=== PATIENT | female | born 1990 | race Caucasian/White ===

== ENCOUNTER → 2020-07-10 10:18 | Outpatient (CLI) | payer OTHER, SELFPAY ==
--- NOTE | ~2020-07-10 | CT_ITS ---
EXAMINATION: CT abdomen pelvis wo con DATE: 07/10/2020 10:42 INDICATION: Right flank pain for months TECHNIQUE: Computed tomography (CT) of the abdomen and pelvis was performed without intravenous contr ast. Automated exposure control and iterative reconstruction technique were employed. Exam dose: 252 .68 mGy-cm total exam DLP. COMPARISON: None. FINDINGS: There are emphysematous changes. No infiltrate or consolidation or mass lesion is noted in the lower lung zones. Included Normal heart size. No pericardial or pleural effusion. Status post cholecystectomy. The liver, spleen, pancreas, and adrenal glands and kidneys are unremark able on this limited noncontrast examination. No bile duct or pancreatic duct dilatation. Normal caliber of the abdominal aorta. No intraperitoneal or retroperitoneal or pelvic mass lesion or adenopathy or ascites. The urinary bladder, uterus and adnexal areas are unremarkable. There is a prominent amount of fecal material in the rectum and colon. No bowel obstruction, bowel wa ll thickening, pneumatosis or intraperitoneal free air. Very small fat-containing umbilical hernia. No suspicious osteolytic or osteosclerotic lesion is detected. IMPRESSION: No urinary tract calculus or hydroureteronephrosis Status post cholecystectomy Reviewed, dictated and finalized at [facility] Reviewed, dictated and finalized at [facility].
== END ==
PROVIDERS: Visit Provider Physician Assistant
DX: R10.9 Unspecified abdominal pain (principal); Z90.49 Acquired absence of other specified parts of digestive tract
CPT/HCPCS: 74176

== ENCOUNTER → 2021-01-08 00:12 | Outpatient (CLI) | payer OTHER, SELFPAY ==
[2021-01-08 20:47] LABS: SARS-CoV-2 RNA PCR Negative
== END ==
PROVIDERS: PCP Family Medicine; Visit Provider Internal Medicine Gastroenterology
DX: Z01.812 Encounter for preprocedural laboratory examination (principal); Z20.822 Contact with and (suspected) exposure to COVID-19
CPT/HCPCS: C9803; U0003; U0005

== ENCOUNTER 2021-01-11 01:21 | Day surgery (SDC) | payer OTHER, SELFPAY ==
[2020-12-28 13:38] VITALS: BMI 27.8
[2021-01-11 10:18] VITALS: BP 93/75; PULSE 80; RESP 18; TEMP 36.7; O2SAT 100
[2021-01-11] MEDS: LACTATED RINGERS 1,000 ML 150 ML IV CONT (10:31)
--- NOTE | 2021-01-11 10:51 | WPDANESEPPF ---
Anes - Initial Pre Proc Eval Procedure: Operation Date: 01/11/21 11:00 Proposed Procedures p Colonoscopy - Eris Oshea MD Date/Time: 01/11/21 10:51 Surgeon: Eris Oshea MD Pre Op Diagnosis: constipation Patient Data Age: 30 Gender: F Height: 5 ft 1 in Weight: 63.3 kg Last Vital Signs Temp 98.0 F 01/11/21 10:18 Pulse 80 01/11/21 10:18 Resp 18 01/11/21 10:18 BP 93/75 L 01/11/21 10:18 Pulse Ox 100 01/11/21 10:18 Allergies Allergy/AdvReac Type Severity Reaction Status Date / Time No Known Allergies Allergy Verified 01/11/21 10:15 Home Medications Medication Instructions Recorded Confirmed Type albuterol sulfate 90 mcg/actuation 90 mcg INHALATION PRN PRN 07/31/20 12/28/20 History aerosol inhaler norethindrone acetate 1 mg-ethinyl 1 tablet PO DAILY tablet 07/31/20 01/11/21 History estradiol 20 mcg tablet Patient hx anesthesia problems: none Family hx anesthesia problems: none PMFSH Past Medical History Medical History (Updated 11/27/20 @ 15:28 by Eris Oshea MD) Alternating constipation and diarrhea Chronic constipation Tobacco abuse Family History Family History Mother Family history of gastrointestinal disorder Father Family history of cardiovascular disease Grandparent Diabetes mellitus Hypertension Other Cerebrovascular accident Family history of allergic disorder Social History Social History (Updated 11/27/20 @ 15:05 by Tona Crockett CMA) Smoking packs per day: 1 Smoking cigarettes per day: 20.0 Years smoked: 15 Smoking pack-years: 15.00 Smoking status: Current every day smoker Tobacco type: cigarettes Alcohol intake: current Drinks per week: 2 Substance use: never Substance use type: does not use Living arrangements: with roommate(s) Spiritual care concerns: No Anes - Eval Final PreProcedure Day of Procedure 01/11/21 10:51 Patient weight: normal Heart: regular rate and rhythm Lungs: clear to auscultation Airway: Mallampati scale class II Neurological: alert and oriented Last oral intake: >/= 8 hours ASA classification: II Emergent: no Anesthetic plan: proceed Anesthesia type and monitoring: general GIVS and standard monitoring Informed Consent: The patient's anesthetic plan and its attendant risks and benefits were discussed with the patient/family/POA. Questions were solicited and answers provided to the satisfaction of the patient/family/POA.
--- NOTE | 2021-01-11 11:01 | PM.HPGS ---
History of Present Illness History of Present Illness Consent: Risks, benefits, and alternatives have been discussed and questions answered. Patient agrees to proceed with procedure. Chief complaint: constipation Narrative: Coreen Mackay is a 30 year old female baseline constipation but after GB removed had diarrhea, I prescribed questran that she took only few times but became constipated again, last time she took over a week ago. She never had a colonoscopy, no blood in stools. CT scan a/p negative, here for colonoscopy Review of Systems Constitutional: Constitutional: Denies headache(s) and Denies weakness Eyes: Eyes: Denies blurry vision ENT: Reports Normal hearing present, Denies headache(s) and Denies neck pain Cardiovascular: Cardiovascular: Denies chest pain and Denies dyspnea Respiratory: Respiratory: Denies dyspnea Gastrointestinal: Gastrointestinal: Reports no additional gastrointestinal complaints Genitourinary: Genitourinary: Denies dysuria Musculoskeletal: Musculoskeletal: Denies neck pain Integumentary/Breasts: Skin/Breast: Denies dry skin Neurologic: Reports Normal hearing present, Denies headache(s) and Denies weakness Psychiatric: Psychiatric: Denies anxiety Endocrine: Endocrine: Denies change in body appearance Hematologic/Lymphatic: Hematologic/Lymphatic: Denies easy bleeding Allergic/Immunologic: Allergic/Immunologic: Denies urticaria PMFSH Past Medical History Medical History (Updated 11/27/20 @ 15:28 by Eris Oshea MD) Alternating constipation and diarrhea Chronic constipation Tobacco abuse Family History Family History Mother Family history of gastrointestinal disorder Father Family history of cardiovascular disease Grandparent Diabetes mellitus Hypertension Other Cerebrovascular accident Family history of allergic disorder Social History Social History (Updated 11/27/20 @ 15:05 by Tona Crockett CMA) Smoking packs per day: 1 Smoking cigarettes per day: 20.0 Years smoked: 15 Smoking pack-years: 15.00 Smoking status: Current every day smoker Tobacco type: cigarettes Alcohol intake: current Drinks per week: 2 Substance use: never Substance use type: does not use Living arrangements: with roommate(s) Spiritual care concerns: No Meds Home Medications and Allergies Home Medications Medication Instructions Recorded Confirmed Type albuterol sulfate 90 mcg/actuation 90 mcg INHALATION PRN PRN 07/31/20 12/28/20 History aerosol inhaler norethindrone acetate 1 mg-ethinyl 1 tablet PO DAILY tablet 07/31/20 01/11/21 History estradiol 20 mcg tablet Allergies Allergy/AdvReac Type Severity Reaction Status Date / Time No Known Allergies Allergy Verified 01/11/21 10:15 Vital Signs Vital Signs - 24 hr 01/11/21 10:18 Temperature 98.0 F Pulse Rate 80 Respiratory Rate 18 Blood Pressure 93/75 L Pulse Oximetry 100 Exam Const: General: comfortable and no acute distress HENMT: General nose exam: Normal nares present Eyes: General: appearance normal, both eyes and all related structures Neck: Neck: no JVD Resp: Auscultation: clear to auscultation bilaterally Cardio: Rate: regular rate Rhythm: regular rhythm GI: Inspection: non-distended GI Palp: Yes Soft to palpation Skin: General skin exam: normal color Neuro: General: gait normal Speech: normal speech Extrem: General: normal to inspection Psych: Mental Status: mental status grossly normal Assessment and Plan Assessment and plan (1) Chronic constipation: Code(s): K59.09 - Other constipation Status: Acute Assessment and Plan: colonoscopy
[2021-01-11 11:29] VITALS: BP 104/73; PULSE 76; RESP 35; O2SAT 100
[2021-01-11 11:39] VITALS: BP 116/77; PULSE 85; RESP 21; O2SAT 100
[2021-01-11 11:49] VITALS: BP 106/67; PULSE 80; RESP 22; O2SAT 100
== END 2021-01-11 12:02 | disposition home or self-care (01) ==
PROVIDERS: PCP Family Medicine; Visit Provider Internal Medicine Gastroenterology
PROC: 0DJD8ZZ Inspection of Lower Intestinal Tract, Via Natural or Artificial Opening Endoscopic (ICD-10-PCS; CPT 45378; principal; 2021-01-11 11:00)
DX: K59.00 Constipation, unspecified (principal); K63.5 Polyp of colon; K64.8 Other hemorrhoids; Z79.51 Long term (current) use of inhaled steroids; F17.210 Nicotine dependence, cigarettes, uncomplicated
CPT/HCPCS: 45385; 88305; C9803; J2704; J7120; U0003; U0005

== ENCOUNTER 2022-03-07 09:47 | Day surgery (SDC) | payer OTHER, SELFPAY ==
[2022-02-13 11:59] VITALS: BMI 24.5
--- NOTE | 2022-02-13 12:08 | SUR.PREOP ---
PRE-OPERATIVE [address] [address] 1. Report to the Surgery Center Waiting Room, the entrance is the first door on the right after passing through the automatic sliding doors, at time __1030___on date_03/07/2022__. OR Time:__1200__ . When you arrive, you and your visitor will be screened for Covid prior to entry. A mask is required within the surgery center. 2. Patients may have clear liquids (water, carbonated beverages, clear teas, apple juice) until 3 hours prior to surgery with a maximum of 20 ounces. ? No food from midnight until time of surgery. ? Infants may have breast milk until 4 hours before surgery, infant formula 6 hours prior to surgery. ? Children will be allowed to drink immediately following surgery. If applicable, please bring a bottle or sippy cup to assist with drinking. Juice, water, soda, and popsicles are readily available. For infants on formula, please bring formula the day of surgery. Pacifiers are allowed. 3. Take the following medications with a SIP of water the morning of surgery: 1. n/a 2. 3. Medications to discontinue per physician order: 1. n/a date to discontinue: 4. No make-up, nail chinese, hairspray, perfume, deodorant, or body powder the day of surgery. No jewelry (including any body piercings) or valuables the day of surgery. Please take a shower or bath the night before, or the morning of, surgery with an antibacterial soap. Wear comfortable, loose fitting clothing. Children are encouraged to wear pajamas. ? Jewelry must be removed prior to entering the operating room. Rings and piercings that are not removed will be cut off. The center will not accept responsibility for valuables. Please leave all valuables, including medications, at home the day of surgery. 5. When going home after surgery, a licensed log truck driver must drive you home. NO public transportation without another adult. We recommend someone to stay with you, no alcoholic beverages, driving or important decision making for 24 hours after surgery. For pediatric surgeries, we recommend two adults to accompany a child home. (Only one will be allowed into the building with the patient) 6. 1 visitor (over age of 18) will be allowed. The visitor will drop patient off and remain in car until patient is prepared for surgery. Visitor will be called to join patient. Exceptions: Adult of a pediatric patient, patients with intellectual and/or developmental disability or cognitive impairments can accompany patient through-out visit. Visitors will need to be screened prior to coming into the center. Screening will include Covid symptom question checking. Visitor must wear a mask. Visitor will remain in patient?s room for duration of stay. 7. If you or anyone in your household have experienced Covid symptoms in the past week, please notify your surgeon or surgery center at phone number below for possible testing. 8. Follow any additional instructions given by your physician. Telephone instructions given to:____Coreen -patient and asked if any additional questions and then verbalized understanding. Patient advised to call surgeon office or the surgery center at [phone] if any additional questions.
[2022-03-07 10:17] VITALS: BMI 23.0
[2022-03-07 10:18] VITALS: BP 106/77; PULSE 65; RESP 16; TEMP 36.9; O2SAT 100
[2022-03-07] MEDS: LACTATED RINGERS 1,000 ML 30 ML IV CONT (10:36)
--- NOTE | 2022-03-07 11:50 | WPDHPUPDATE1 ---
History and Physical Update Update Date/Time: 03/07/22 11:50 History and Physical has been reviewed, including an updated exam of the patient. There are NO changes in the patient's condition. Risks, benefits, and alternatives have been discussed and questions answered. Patient agrees to proceed with procedure.
--- NOTE | 2022-03-07 11:54 | WPDANESEPPF ---
Anes - Initial Pre Proc Eval Procedure: Operation Date: 03/07/22 12:00 Proposed Procedures p Esophagogastroduodenoscopy - Nikita Mac DO Date/Time: 03/07/22 11:54 Surgeon: Nikita Mac DO Pre Op Diagnosis: Gerd Patient Data Age: 31 Gender: F Height: 1.6 m Weight: 59 kg Last Vital Signs Temp 36.9 C 03/07/22 10:18 Pulse 65 03/07/22 10:18 Resp 16 03/07/22 10:18 BP 106/77 03/07/22 10:18 Pulse Ox 100 03/07/22 10:18 O2 Del Method Room Air 03/07/22 10:18 Allergies Allergy/AdvReac Type Severity Reaction Status Date / Time No Known Allergies Allergy Verified 03/07/22 09:58 Home Medications Medication Instructions Recorded Confirmed Type albuterol sulfate 90 mcg/actuation 90 mcg inhalation PRN PRN 07/31/20 03/07/22 History aerosol inhaler Shortness Of Breath norethindrone acetate 1 mg-ethinyl 1 tablet PO DAILY 07/31/20 03/07/22 History estradiol 20 mcg tablet famotidine-Ca carb-mag hydrox 10 1 tablet PO DAILY PRN Acid Reflux 02/13/22 03/07/22 History mg-800 mg-165 mg chewable tablet (Pepcid Complete) valacyclovir 500 mg tablet 500 mg PO DAILY 02/13/22 03/07/22 History (Valtrex) Patient hx anesthesia problems: none Family hx anesthesia problems: none Results Review: All pre-operative results and documents have been reviewed as part of the pre-operative evaluation. [facility] Past Medical History Medical History (Updated 03/06/22 @ 12:40 by Leon Vargas DO) Alternating constipation and diarrhea Asthma Chronic constipation GERD (gastroesophageal reflux disease) Tobacco abuse Surgical History Surgical History H/O dilation and curettage History of tonsillectomy Hx of cholecystectomy Family History Family History Mother Family history of gastrointestinal disorder Father Family history of cardiovascular disease Grandparent Diabetes mellitus Hypertension Other Cerebrovascular accident Family history of allergic disorder Social History Social History Smoking packs per day: 1 Smoking cigarettes per day: 20.0 Years smoked: 17 Smoking pack-years: 17.00 Smoking status: Current every day smoker Tobacco type: cigarettes Alcohol intake: current Drinks per week: 2 Substance use: never Substance use type: does not use Living arrangements: with family Spiritual care concerns: No Anes - Eval Final PreProcedure Day of Procedure 03/07/22 11:54 Patient weight: normal Heart: regular rate and rhythm Lungs: clear to auscultation Airway: Mallampati scale class II Neurological: alert and oriented Last oral intake: >/= 8 hours ASA classification: II Emergent: no Anesthetic plan: proceed Anesthesia type and monitoring: general GIVS and standard monitoring Results Review: All pre-operative results and documents have been reviewed as part of the pre-operative evaluation. Informed Consent: The patient's anesthetic plan and its attendant risks and benefits were discussed with the patient/family/POA. Questions were solicited and answers provided to the satisfaction of the patient/family/POA.
[2022-03-07 12:20] VITALS: BP 123/75; PULSE 67; RESP 14; O2SAT 100
[2022-03-07 12:30] VITALS: BP 107/75; PULSE 67; RESP 15; O2SAT 100
[2022-03-07 12:40] VITALS: BP 112/70; PULSE 65; RESP 15; O2SAT 100
== END 2022-03-07 09:48 | disposition home or self-care (01) ==
PROVIDERS: PCP Family Medicine; Visit Provider Surgery
PROC: 0DJ08ZZ Inspection of Upper Intestinal Tract, Via Natural or Artificial Opening Endoscopic (ICD-10-PCS; CPT 43235; principal; 2022-03-07 12:00)
DX: K29.00 Acute gastritis without bleeding (principal); K20.90 Esophagitis, unspecified without bleeding
CPT/HCPCS: 43239

== ENCOUNTER 2022-03-07 13:00 | Outpatient (NON) | payer OTHER, SELFPAY | END 2022-03-07 13:01 | disposition home or self-care (01) | LOC: ANHLAB 03-10 08:34 | PROVIDERS: PCP Family Medicine; Visit Provider Surgery | DX: R10.11 Right upper quadrant pain (principal); K29.50 Unspecified chronic gastritis without bleeding | CPT/HCPCS: 88305 ==

== ENCOUNTER 2025-04-14 01:00 | Day surgery (SDC) | payer OTHER, SELFPAY ==
[2025-04-10 13:49] VITALS: BMI 30.2
--- NOTE | 2025-04-10 13:49 | PC.NURSE ---
Report to the Outpatient Waiting Room, entrance under the green pavilion located off [facility], at time _1pm_ on date _[id number]_. Planned Procedure Time: _3pm_.? Time changes happen often and if your time is changed the preop area will call you the afternoon before. - You and your visitor will be asked to self-screen and do not enter if you have any COVID symptoms. Please call surgeon if you need to reschedule. - A mask is optional within the hospital at this time. Patients may have clear liquids (water, carbonated beverages, clear teas, apple juice) until 3 hours prior to surgery with a maximum of 20 ounces. - No food from midnight until time of surgery and no smoking, or chewing tobacco (or any form of nicotine). No chewing gum, candy or mints. Take only the following medications with a SIP of water on the morning of surgery: ___Citalopram and Buspirone and if needed Albuterol____ DO NOT STOP ANY OF YOUR OTHER PRESCRIPTION MEDICATIONS PRIOR TO SURGERY EXCEPT THE FOLLOWING Hold all vitamins and supplements for 3 days per anesthesiologist. Medications to discontinue per physician ___None____ Date to take last dose Please no make-up, nail slovak, hairspray, perfume, deodorant, or body powder the day of surgery.? No jewelry (including any body piercings) or valuables the day of surgery, leave them at home.? Please take a shower or bath the night before, or the morning of, surgery with an antibacterial soap.? Wear comfortable, loose fitting clothing.? - Jewelry must be removed prior to entering the operating room.? Rings and piercings that are not removed may be cut off. - The hospital will not accept responsibility for valuables.? - Please leave all valuables, including medications, at home the day of surgery. If you are going home after surgery, a licensed route delivery service driver must drive you home.? - NO public transportation without another adult if you receive anesthesia. - We recommend that an adult stay with you for 24 hours following discharge. - We also recommend that you do not drive, make important decision, drink alcoholic beverages, or take any drugs that were not prescribed by your health care provider for at least 24 hours after your discharge time. Follow any additional instructions given to you from your surgeon. Telephone instructions given to __Coreen___and asked if any additional questions and then verbalized understanding. Patient advised to call surgeon office or pre surgery nurse liaison [phone] if any additional questions.
--- NOTE | 2025-04-12 07:04 | PM.IMHP ---
H&P: HPI History of Present Illness Date/Time: 04/12/25 07:04 Chief Complaint: 1st trimester missed A/B Narrative: 34-year-old 1 para 0 with an 8 week missed A/B suction dilatation curettage. Serial ultrasound has shown no growth with no heart tones.. She could have a vanishing twin as well. Risks and benefits reviewed including but not exclusive of , aspiration, bleeding, transfusion, perforation injury bowel, bladder, ureters, or other internal organs with any over brought laparotomy. She had all questions answered and asked to proceed Review of Systems Constitutional: Constitutional: Denies headache(s) and Denies weakness Eyes: Eyes: Denies blurry vision ENT: Reports Normal hearing present, Denies headache(s) and Denies neck pain Cardiovascular: Cardiovascular: Denies chest pain and Denies dyspnea Respiratory: Respiratory: Denies dyspnea Gastrointestinal: Gastrointestinal: Reports no additional gastrointestinal complaints Genitourinary: Genitourinary: Denies dysuria Musculoskeletal: Musculoskeletal: Denies neck pain Integumentary/Breasts: Skin/Breast: Denies dry skin Neurologic: Reports Normal hearing present, Denies headache(s) and Denies weakness Psychiatric: Psychiatric: Denies anxiety Endocrine: Endocrine: Denies change in body appearance Hematologic/Lymphatic: Hematologic/Lymphatic: Denies easy bleeding Allergic/Immunologic: Allergic/Immunologic: Denies urticaria PMFSH Past Medical History Medical History Adenomatous colon polyp Asthma GERD (gastroesophageal reflux disease) Tobacco abuse Chronic constipation Alternating constipation and diarrhea Surgical History Surgical History H/O dilation and curettage Hx of cholecystectomy History of tonsillectomy Family History Family History Mother Family history of gastrointestinal disorder Father Family history of cardiovascular disease Grandparent Diabetes mellitus Hypertension Other Cerebrovascular accident Family history of allergic disorder Social History Social History Smoking packs per day: 1 Smoking cigarettes per day: 20.0 Years smoked: 20 Smoking pack-years: 20.00 Smoking status: Current every day smoker Tobacco type: cigarettes Alcohol intake: current Drinks per week: 2 Substance use: never Substance use type: marijuana Living arrangements: with family Spiritual care concerns: No Meds Home Medications and Allergies Home Medications ?Medication ?Instructions ?Recorded ?Confirmed ?Type albuterol sulfate 90 mcg/actuation 90 mcg inhalation PRN PRN 07/31/20 04/10/25 History aerosol inhaler Shortness Of Breath valacyclovir 500 mg tablet 500 mg PO DAILY 02/13/22 04/10/25 History (Valtrex) buspirone 7.5 mg tablet 7.5 mg PO DAILY 04/10/25 04/10/25 History citalopram 20 mg tablet 20 mg PO DAILY 04/10/25 04/10/25 History Allergies Allergy/AdvReac Type Severity Reaction Status Date / Time No Known Allergies Allergy Verified 04/10/25 13:38 Exam Const: General: cooperative, healthy appearing and comfortable Nutritional Appearance: average body habitus Orientation/consciousness: oriented to person, oriented to place and oriented to time HENMT: Head: normal to inspection Resp: Effort & Inspection: normal respiratory effort Cardio: Rate: regular rate Rhythm: regular rhythm Heart sounds: S1 normal heart sound present and S2 normal heart sound present GI: Inspection: normal to inspection : External Female Exam: normal external appearance Speculum Exam - Vagina: normal appearance of the vagina Bimanual exam- vagina & uterus: enlarged Bimanual Exam- Adnexa, other: normal adnexae Assessment and Plan Assessment and plan (1) Missed : Code(s): O02.1 - Missed Status: Acute Plan Suction dilatation curettage
--- NOTE | 2025-04-14 06:35 | WPDHPUPDATE1 ---
History and Physical Update Update Date/Time: 04/14/25 06:35 History and Physical has been reviewed, including an updated exam of the patient. There are NO changes in the patient's condition. Risks, benefits, and alternatives have been discussed and questions answered. Patient agrees to proceed with procedure.
[2025-04-14] MEDS: ACETAMINOPHEN 500 MG TABLET 1000 MG PO (14:00)
[2025-04-14 14:14] VITALS: BP 98/63; PULSE 87; RESP 16; TEMP 36.4; O2SAT 100
[2025-04-14 14:25] LABS: Hematocrit 40.3 % (37.0-47.0); Hemoglobin 13.5 g/dL (12.0-15.0)
--- NOTE | 2025-04-14 14:38 | P.PNAN_ITS ---
Anes - Initial Pre Proc Eval Procedure: Operation Date: 04/14/25 15:00 Proposed Procedures p Suction Dilation and Curettage - Ebenezer Neff MD Date/Time: 04/14/25 14:38 Surgeon: Ebenezer Neff MD Pre Op Diagnosis: Missed Ab Patient Data Age: 34 Gender: F Height: 1.57 m Weight: 74.1 kg Last Vital Signs Temp 36.4 C 04/14/25 14:14 Pulse 87 04/14/25 14:14 Resp 16 04/14/25 14:14 BP 98/63 L 04/14/25 14:14 Pulse Ox 100 04/14/25 14:14 O2 Del Method Room Air 04/14/25 14:14 Allergies Allergy/AdvReac Type Severity Reaction Status Date / Time No Known Allergies Allergy Verified 04/14/25 14:26 Home Medications ?Medication ?Instructions ?Recorded ?Confirmed ?Type albuterol sulfate 90 mcg/actuation 90 mcg inhalation PRN PRN 07/31/20 04/10/25 History aerosol inhaler Shortness Of Breath valacyclovir 500 mg tablet 500 mg PO DAILY 02/13/22 04/10/25 History (Valtrex) buspirone 7.5 mg tablet 7.5 mg PO DAILY 04/10/25 04/10/25 History citalopram 20 mg tablet 20 mg PO DAILY 04/10/25 04/10/25 History hydrocodone 5 mg-acetaminophen 325 1 tablet PO Q4H PRN pain #14 tabs 04/14/25 Rx mg tablet Laboratory Tests 04/14/25 14:05 Hgb 13.5 g/dL (12.0-15.0) Hct 40.3 % (37.0-47.0) Blood Type Pending Antibody Screen Pending Screen Pending Baby's Blood Type Pending Baby's NICOLE Pending Doses of RhIg Required Pending Patient hx anesthesia problems: none Family hx anesthesia problems: none Results Review: All pre-operative results and documents have been reviewed as part of the pre- operative evaluation. [facility] Past Medical History Medical History Adenomatous colon polyp Asthma GERD (gastroesophageal reflux disease) Tobacco abuse Chronic constipation Alternating constipation and diarrhea Surgical History Surgical History H/O dilation and curettage Hx of cholecystectomy History of tonsillectomy Family History Family History Mother Family history of gastrointestinal disorder Father Family history of cardiovascular disease Grandparent Diabetes mellitus Hypertension Other Cerebrovascular accident Family history of allergic disorder Social History Social History Smoking packs per day: 1 Smoking cigarettes per day: 20.0 Years smoked: 20 Smoking pack-years: 20.00 Smoking status: Current every day smoker Tobacco type: cigarettes Alcohol intake: current Drinks per week: 2 Substance use: never Substance use type: marijuana Living arrangements: with family Spiritual care concerns: No Anes - Eval Final PreProcedure Day of Procedure 04/14/25 14:38 Patient weight: overweight Heart: regular rate and rhythm Lungs: decreased breath sounds Airway: Mallampati scale class II Neurological: alert and oriented Last oral intake: >/= 8 hours ASA classification: II Emergent: no Anesthetic plan: proceed Anesthesia type and monitoring: general GIVS and standard monitoring Results Review: All pre-operative results and documents have been reviewed as part of the pre- operative evaluation. Informed Consent: The patient's anesthetic plan and its attendant risks and benefits were discussed with the patient/family/POA. Questions were solicited and answers provided to the satisfaction of the patient/family/POA.
[2025-04-14] MEDS: LIDOCAINE 1% LOCAL INJ 10 ML VIAL INFILTRATE (15:23)
--- NOTE | 2025-04-14 15:29 | W.PM.PROC2 ---
Procedure Note - Detailed Date of Procedure 04/14/25 Pre-op Diagnosis Missed Ab Post-op Diagnosis Same Procedure Performed Suction dilatation curettage Surgeon Ebenezer Neff MD Anesthesia MAC and Local Indications 34-year-old 1 para 0 the 1st trimester with a missed A/B Findings Uterus sounded to 9cm. Minimal tissue was present. Description of Procedure Patient was prepped and draped in the normal sterile fashion placed in the dorsal lithotomy position. Under excellent IV sedation weighted speculum placed posterior fornix vagina. Anterior lip of the cervix was then grasped with a single-tooth tenaculum. 2.5cc 1% xylocaine anesthesia placed at 2, 4, 8, 10:00 a.m. of the cervix. Uterus sounded to 9cm. Serial dilatation with fragmented dilators performed followed by passage of the 9. Suction curette removing a small to moderate amount of tissue. When a good grating sound was heard and no further tissue, the instruments withdrawn. The patient went recovery in satisfactory condition. All sponge, needle, instrument counts were correct. There were no immediate complications and RhoGAM was ordered due to her Rh negative status Estimated Blood Loss 25 Drains No Packing No Pathology Yes Complications No immediate complications Condition Stable Disposition PACU
[2025-04-14 15:32] VITALS: BP 122/72; PULSE 98; RESP 16; O2SAT 100
[2025-04-14] MEDS: LACTATED RINGERS 1,000 ML 30 ML IV CONT (15:32)
--- NOTE | 2025-04-14 15:33 | S_PTH ---
PATIENT: Coreen Aranda LOC: [facility] U#:[id number] AGE/SX: 34/F ROOM: RE04/14/[address]: Ebenezer Neff MD : 1990 BED: DIS: 04/14/2025 SPEC #: [id number] RECD: 04/17/25 08:26 STATUS: OMAR REKellen #: [id number] DAYNA: 04/14/25 15:[address]: Ebenezer Ordonez DEPT: [facility] Surgical RECD BY: Katarina Queen ENTERED: 04/17/25 08:26 SP TYPE: Surgical OTHR DR: Cm Fernandez, PALisaC Tissues: A - Uterine Contents Procedures: Hematoxylin and Eosin Stain Gross and Microscopic Level 4
[2025-04-14] MEDS: fentaNYL CITRATE INJ (*CRX) 100 MCG/2 ML VIAL 25 MCG IV PUSH ×2 (15:59→16:16)
[2025-04-14 16:00] VITALS: BP 134/84; PULSE 93; RESP 16; O2SAT 100
[2025-04-14 16:30] VITALS: BP 111/69; PULSE 83; RESP 16
[2025-04-14] MEDS: RHO(D) IMMUNE GLOBULIN 300 MCG/2 ML SYRINGE IM (16:41)
[2025-04-14] MEDS: oxyCODONE HCL (*CRX) 5 MG TAB IR PO (16:59)
[2025-04-14 17:00] VITALS: BP 100/70; PULSE 99; RESP 16
--- NOTE | 2025-04-14 17:13 | SUR.PHASEII ---
PATIENT TEARFUL UPON ARRIVAL TO OP AREA X 30-45 MINUTES; ASKED TO GO HOME AROUND 1650.
== END 2025-04-14 17:00 | disposition home or self-care (01) ==
PROVIDERS: PCP Physician Assistant; Visit Provider Obstetrics & Gynecology
PROC: (CPT 59820; principal; 2025-04-14 15:00)
DX: O02.1 Missed abortion (principal); J45.909 Unspecified asthma, uncomplicated; K21.9 Gastro-esophageal reflux disease without esophagitis; K59.09 Other constipation; F17.210 Nicotine dependence, cigarettes, uncomplicated; F12.90 Cannabis use, unspecified, uncomplicated; Z79.51 Long term (current) use of inhaled steroids; Z79.891 Long term (current) use of opiate analgesic; Z98.890 Other specified postprocedural states; Z90.49 Acquired absence of other specified parts of digestive tract; Z86.0100 Personal history of colon polyps, unspecified; Z82.49 Family history of ischemic heart disease and other diseases of the circulatory system
CPT/HCPCS: 59820; 36415; 85014; 85018; 85461; 86850; 86900; 86901; 88305; 90384; A9270; J2003; J2250; J2270; J2704; J2790; J3010; J7120

== ENCOUNTER 2025-06-16 01:30 | Day surgery (SDC) | payer OTHER, SELFPAY ==
[2025-06-09 08:37] VITALS: BMI 30.5
--- NOTE | 2025-06-09 08:45 | PC.NURSE ---
[facility] has started construction of its new state of the art ER which will open Spring 2026. With this, we anticipate parking may be a challenge for some our surgical patients and families. Parking spaces are limited but are available for all Surgical, obstetrics, and ER patients sharing this lot. If you arrive and find you are having a hard time finding a parking space, please note that we understand the challenges, please drive around the hospital and park near Hospital Entrance 1. When you enter this entrance, you can ask a volunteer to direct or take you back to the surgical waiting area to check in. We appreciate everyone?s understanding of these expected challenges while we build for your future. Report to the Outpatient Waiting Room, entrance under the green pavilion located off [address], at time _1000_ on date _[id number]_. Planned Procedure Time: _1200_.? Time changes happen often and if your time is changed the preop area will call you the afternoon before. - You and your visitor will be asked to self-screen and do not enter if you have any COVID symptoms. Please call surgeon if you need to reschedule. - A mask is optional within the hospital at this time. Patients may have clear liquids (water, carbonated beverages, clear teas, apple juice) until 3 hours prior to surgery with a maximum of 20 ounces. - No food from midnight until time of surgery and no smoking, or chewing tobacco (or any form of nicotine). No chewing gum, candy or mints. Take only the following medications with a SIP of water on the morning of surgery: ___Citalopram, Buspirone and if needed Alprazolam___ DO NOT STOP ANY OF YOUR OTHER PRESCRIPTION MEDICATIONS PRIOR TO SURGERY EXCEPT THE FOLLOWING Hold all vitamins and supplements for 3 days per anesthesiologist. Medications to discontinue per physician Date to take last dose Please no make-up, nail bengali, hairspray, perfume, deodorant, or body powder the day of surgery.? No jewelry (including any body piercings) or valuables the day of surgery, leave them at home.? Please take a shower or bath the night before, or the morning of, surgery with an antibacterial soap.? Wear comfortable, loose fitting clothing.? - Jewelry must be removed prior to entering the operating room.? Rings and piercings that are not removed may be cut off. - The hospital will not accept responsibility for valuables.? - Please leave all valuables, including medications, at home the day of surgery. If you are going home after surgery, a licensed bulk truck driver must drive you home.? - NO public transportation without another adult if you receive anesthesia. - We recommend that an adult stay with you for 24 hours following discharge. - We also recommend that you do not drive, make important decision, drink alcoholic beverages, or take any drugs that were not prescribed by your health care provider for at least 24 hours after your discharge time. Follow any additional instructions given to you from your surgeon. Telephone instructions given to __Coreen___and asked if any additional questions and then verbalized understanding. Patient advised to call surgeon office or pre surgery nurse liaison [phone] if any additional questions.
--- NOTE | 2025-06-12 14:12 | PM.IMHP ---
H&P: HPI History of Present Illness Date/Time: 06/12/25 14:12 Chief Complaint: Vaginal bleeding Narrative: Is a 34-year-old female admitted for repeat suction dilatation curettage. She underwent 1 about a month ago and pathology was benign. Her quantitative HCGs have been smoldering and ultrasound shows a 2cm area of retained tissue risks and benefits of this procedure reviewed including not exclusive of , aspiration minimal, bleeding, transfusion, perforation injury to bowel, bladder, ureters, or other internal organs with need for open laparotomy and unlikely hysterectomy. She had all questions answered and asked to proceed Review of Systems Constitutional: Constitutional: Denies headache(s) and Denies weakness Eyes: Eyes: Denies blurry vision ENT: Reports Normal hearing present, Denies headache(s) and Denies neck pain Cardiovascular: Cardiovascular: Denies chest pain and Denies dyspnea Respiratory: Respiratory: Denies dyspnea Gastrointestinal: Gastrointestinal: Reports no additional gastrointestinal complaints Genitourinary: Genitourinary: Denies dysuria Musculoskeletal: Musculoskeletal: Denies neck pain Integumentary/Breasts: Skin/Breast: Denies dry skin Neurologic: Reports Normal hearing present, Denies headache(s) and Denies weakness Psychiatric: Psychiatric: Denies anxiety Endocrine: Endocrine: Denies change in body appearance Hematologic/Lymphatic: Hematologic/Lymphatic: Denies easy bleeding Allergic/Immunologic: Allergic/Immunologic: Denies urticaria PMFSH Past Medical History Medical History Adenomatous colon polyp Asthma GERD (gastroesophageal reflux disease) Tobacco abuse Chronic constipation Alternating constipation and diarrhea Surgical History Surgical History H/O dilation and curettage Hx of cholecystectomy History of tonsillectomy Family History Family History Mother Family history of gastrointestinal disorder Father Family history of cardiovascular disease Grandparent Diabetes mellitus Hypertension Other Cerebrovascular accident Family history of allergic disorder Social History Social History Smoking packs per day: 1 Smoking cigarettes per day: 20.0 Years smoked: 20 Smoking pack-years: 20.00 Smoking status: Current every day smoker Tobacco type: cigarettes Alcohol intake: current Drinks per week: 2 Substance use: never Substance use type: marijuana Other substance usage details: Daily Living arrangements: with family Spiritual care concerns: No Meds Home Medications and Allergies Home Medications ?Medication ?Instructions ?Recorded ?Confirmed ?Type albuterol sulfate 90 mcg/actuation 90 mcg inhalation PRN PRN 07/31/20 06/09/25 History aerosol inhaler Shortness Of Breath valacyclovir 500 mg tablet 500 mg PO DAILY 02/13/22 06/09/25 History (Valtrex) buspirone 7.5 mg tablet 7.5 mg PO DAILY 04/10/25 06/09/25 History citalopram 20 mg tablet 20 mg PO DAILY 04/10/25 06/09/25 History alprazolam 0.25 mg tablet 0.25 mg PO TID PRN anxiety 06/09/25 06/09/25 History omeprazole 40 mg capsule,delayed 40 mg PO DAILY 06/09/25 06/09/25 History release vits no.130-ferrous fum 1 tablet PO DAILY 06/09/25 06/09/25 History 27 mg iron-folic acid 800 mcg tablet ( Vitamin) Allergies Allergy/AdvReac Type Severity Reaction Status Date / Time No Known Allergies Allergy Verified 06/09/25 08:34 Exam Const: General: cooperative, healthy appearing and comfortable Nutritional Appearance: average body habitus Orientation/consciousness: oriented to person, oriented to place and oriented to time HENMT: Head: normal to inspection Resp: Effort & Inspection: normal respiratory effort Cardio: Rate: regular rate Rhythm: regular rhythm Heart sounds: S1 normal heart sound present and S2 normal heart sound present GI: Inspection: normal to inspection : External Female Exam: normal external appearance Speculum Exam - Vagina: normal appearance of the vagina Bimanual exam- vagina & uterus: enlarged Bimanual Exam- Adnexa, other: normal adnexae Assessment and Plan Assessment and plan (1) Missed : Code(s): O02.1 - Missed Status: Acute Plan Proceed with suction dilatation curettage
--- OUTSIDE RECORDS SUMMARY | 2025-06-16 01:38 | XMS_ITS | Encounter Summary ---
Author Organization [facility] Address [address] [place] [address] Care Team Providers Care Scratcher Name Role Phone Unavailable Primary Care Provider Unavailabl e Encounter Details Date Type Department Care Team (Late st Contact Info) Description 06/04/2023 Lab Requisition [facility] - DermPath Lab [address] [place] [address] Rafy Baird MD [address] [place] [address] Social History Tobacco Use Types Packs/Day Years Used Date Smoking Tobacco: Never Assessed Comments Unknown Sex and Gender Information Value Date Recorded Sex Assigned at Not on file Legal Sex Female 2:03 PM CDT Gender Identity Not on file Sexual Orientation Not on file documented as of this encounter Plan of Treatment Not on file documented as of this encounter Procedures Procedure Name Priority Date/Time Associated Diagnosis Comments DERMATOPATHOLOGY Routine 06/03/2023 12:0 0 AM CDT documented in this encounter Results * DERMATOPATHOLOGY (06/03/2023 12:00 AM CDT) Case Report Dermatopathology Report Case: [id number] Authorizing Provider: Rafy Baird MD Collected: 06/03/2023 12:00 AM Ordering Location: [facility] DermPath Lab Received: 06/04/2023 01:12 PM Pathologist: Genia Erazo MD Specimen: Skin, right lateral lower leg 1:43 PM CDT DERMATOPATHOLOGY LABORATORY Final Diagnosis Specimen A. SKIN, right lateral lower leg: BLUE NEVUS, COMMON TYPE (D22.9) 3 1:43 PM CDT DERMATOPATHOLOGY LABORATORY at 1343 CDT Clinical History R/O Dysplastic Nevus 3 1:43 PM CDT DERMATOPATHOLOGY LABORATORY Gross Description Specimen A: Received is one formalin filled container labeled with the patient's name and designated right lateral lower leg. The specimen consists of a shave biopsy measuring 5x4x1 mm. Jar 0. 3 1:43 PM CDT DERMATOPATHOLOGY LABORATORY Microscopic Description Specimen A. SKIN, right lateral lower leg: Within the dermis there are oval, spindle-shaped and dendritic melanocytes with melanophages. 3 1:43 PM CDT DERMATOPATHOLOGY LABORATORY Disclaimer An external and internal positive and negative controls are appropriate for the histochemical, immunohistochemical and immunofluorescence stain(s) in this case (if any), except where stated explicitly. The performance characteristics of the stain(s) cited in this report were developed and its performance characteristic determined by the Dermatopathology Laboratory at [facility], directed by Dr. Kiko Blake. These tests need not be, and therefore are not, approved by the [place] Food and Drug Administration. The tests are used for clinical purposes. Billing Codes Specimen Charges Stain Charges 78593 1 3 1:43 PM CDT DERMATOPATHOLOGY LABORATORY Embedded Images 3 1:43 PM CDT DERMATOPATHOLOGY LABORATORY Pathology/Cytolog y TISSUE SPECIMEN FROM SKIN / Unknown 06/03/2023 06/04/2023 1:12 PM CDT Rafy Baird MD LAB - PATHOLOGY/CYTOLOGY ORD ERABLES Final Result DERMATOPATHOLOGY LABORATORY [facility] - Department of Dermatology [address] [place] [address], [facility] [phone] documented in this encounter Visit Diagnoses Not on filedocumented in this encounter
--- OUTSIDE RECORDS SUMMARY | 2025-06-16 01:38 | XMS_ITS | Clinical Summary ---
Author Organization [facility] Address [address] [place] [address] Care Team Providers Care Collator Name Role Phone Unavailable Primary Care Provider Unavailabl e Source Comments [facility],non-owned Affiliates and Associated Physician Practices is amultiple site organization consisting of ambulatory clinics and hospital sitesin [place], [place], [place] and [place]. This disclosure is being madepursuant to the Care Everywhere program and may not contain all information available regarding this patient. Last updated 18.[facility] [employer] Social History Tobacco Use Types Packs/Day Years Used Date Smoking Tobacco: Never Assessed Comments Unknown Sex and Gender Information Value Date Recorded Sex Assigned at Not on file Legal Sex Female 2:03 PM CDT Gender Identity Not on file Sexual Orientation Not on file Plan of Treatment Health Maintenance Due Date Last Done Comments HIV SCREENING 2005 HEPATITIS C SCREENING 08/11/2008 DTAP/TDAP/TD VACCINES (1 - Tdap) 2009 HEPATITIS B VACCINE (1 of 3 - 19+ 3-dose series) 2009 PAP SMEAR 2011 HPV VACCINE (1 - 3-dose SCDM series) 2017 DEPRESSION SCREENING 09/14/2024 COVID-19 VACCINE ( - 2023-2 5 season) 2025 INFLUENZA VACCINE (#1) 2025 ZOSTER VACCINE (1 of 2) 2040 HIB VACCINE Aged Out No longer eligi ble based on patient's age to complete this topic MENINGOCOCCAL (Group B) VACC INE SHARED DECISION-MAKING Aged Out No longer eligibl e based on patient's age to complete this topic MENINGOCOCCAL GROUPS A/C/Y/W VACCINE Aged Out No longer eligible b ased on patient's age to complete this topic PNEUMOCOCCAL VACCINE Aged Out No long er eligible based on patient's age to complete this topic Insurance [employer] [facility] SELF PAY NO INSURANCE Member Subscriber Plan / Payer (Ef fective for All Dates) Name:Coreen Aranda Member ID:Not on file Relation to Subscriber:Not on file Name:COREEN BELTRE Subscriber ID:Not on file (Home) Address: [address] [place] [address] Payer ID:Not on file Group ID:Not on file Type:Self Pay Address: [facility]
--- NOTE | 2025-06-16 06:39 | WPDHPUPDATE1 ---
History and Physical Update Update Date/Time: 06/16/25 06:39 History and Physical has been reviewed, including an updated exam of the patient. There are NO changes in the patient's condition. Risks, benefits, and alternatives have been discussed and questions answered. Patient agrees to proceed with procedure.
[2025-06-16 10:20] VITALS: BP 109/72; PULSE 71; RESP 16; TEMP 36.4; O2SAT 100
[2025-06-16] MEDS: ACETAMINOPHEN 500 MG TABLET 1000 MG PO (10:25)
[2025-06-16] MEDS: LACTATED RINGERS 1,000 ML 30 ML IV CONT (10:30)
--- NOTE | 2025-06-16 11:27 | WPDANESEPPF ---
Anes - Initial Pre Proc Eval Procedure: Operation Date: 06/16/25 12:00 Proposed Procedures p Suction Dilation and Curettage - Ebenezer Neff MD Date/Time: 06/16/25 11:27 Surgeon: Ebenezer Neff MD Pre Op Diagnosis: retained product Patient Data Age: 34 Gender: F Height: 1.56 m Weight: 77.3 kg Last Vital Signs Temp 36.4 C 06/16/25 10:20 Pulse 71 06/16/25 10:20 Resp 16 06/16/25 10:20 BP 109/72 06/16/25 10:20 Pulse Ox 100 06/16/25 10:20 O2 Del Method Room Air 06/16/25 10:20 Allergies Allergy/AdvReac Type Severity Reaction Status Date / Time No Known Allergies Allergy Verified 06/16/25 10:45 Home Medications ?Medication ?Instructions ?Recorded ?Confirmed ?Type albuterol sulfate 90 mcg/actuation 90 mcg inhalation PRN PRN 07/31/20 06/09/25 History aerosol inhaler Shortness Of Breath valacyclovir 500 mg tablet 500 mg PO DAILY 02/13/22 06/16/25 History (Valtrex) buspirone 7.5 mg tablet 7.5 mg PO DAILY 04/10/25 06/16/25 History citalopram 20 mg tablet 20 mg PO DAILY 04/10/25 06/16/25 History alprazolam 0.25 mg tablet 0.25 mg PO TID PRN anxiety 06/09/25 06/16/25 History omeprazole 40 mg capsule,delayed 40 mg PO DAILY 06/09/25 06/16/25 History release vits no.130-ferrous fum 1 tablet PO DAILY 06/09/25 06/16/25 History 27 mg iron-folic acid 800 mcg tablet ( Vitamin) hydrocodone 5 mg-acetaminophen 325 1 tablet PO Q4H PRN pain #14 tabs 06/16/25 Rx mg tablet Patient hx anesthesia problems: post op nausea/vomiting Family hx anesthesia problems: none Results Review: All pre-operative results and documents have been reviewed as part of the pre-operative evaluation. [facility] Past Medical History Medical History Adenomatous colon polyp Asthma GERD (gastroesophageal reflux disease) Tobacco abuse Chronic constipation Alternating constipation and diarrhea Surgical History Surgical History H/O dilation and curettage Hx of cholecystectomy History of tonsillectomy Family History Family History Mother Family history of gastrointestinal disorder Father Family history of cardiovascular disease Grandparent Diabetes mellitus Hypertension Other Cerebrovascular accident Family history of allergic disorder Social History Social History Smoking packs per day: 1 Smoking cigarettes per day: 20.0 Years smoked: 20 Smoking pack-years: 20.00 Smoking status: Current every day smoker Tobacco type: cigarettes Alcohol intake: current Drinks per week: 2 Substance use: never Substance use type: marijuana Other substance usage details: Daily Living arrangements: with family Spiritual care concerns: No Anes - Eval Final PreProcedure Day of Procedure 06/16/25 11:27 Patient weight: obese Heart: regular rate and rhythm Lungs: normal air movement Airway: Mallampati scale class 1 Neurological: alert and oriented Last oral intake: >/= 8 hours ASA classification: II Emergent: no Anesthetic plan: proceed Anesthesia type and monitoring: general GIVS and standard monitoring Results Review: All pre-operative results and documents have been reviewed as part of the pre-operative evaluation. Informed Consent: The patient's anesthetic plan and its attendant risks and benefits were discussed with the patient/family/POA. Questions were solicited and answers provided to the satisfaction of the patient/family/POA.
[2025-06-16] MEDS: LIDOCAINE 1% LOCAL INJ 10 ML VIAL INFILTRATE (11:45)
--- NOTE | 2025-06-16 11:50 | S_PTH ---
PATIENT: Coreen Aranda LOC: [facility] U#:[id number] AGE/SX: 34/F ROOM: RE06/16/[address]: Ebenezer Neff MD : 1990 BED: DIS: 06/16/2025 SPEC #: [id number] RECD: 06/16/25 12:43 STATUS: OMAR REKellen #: [id number] DAYNA: 06/16/25 11:[address]: Ebenezer Ordonez DEPT: [facility] Surgical RECD BY: Saturnino Hays ENTERED: 06/16/25 12:43 SP TYPE: Surgical OTHR DR: mC Fernandez, PALiasC Tissues: A - Uterine Contents Procedures: Hematoxylin and Eosin Stain Gross and Microscopic Level 4
--- NOTE | 2025-06-16 11:53 | W.PM.PROC2 ---
Procedure Note - Detailed Date of Procedure 06/16/25 Pre-op Diagnosis retained product Post-op Diagnosis Same Procedure Performed Suction dilatation curettage Surgeon Ebenezer Neff MD Anesthesia MAC and Local Indications This is a 34-year-old female with incomplete AB with retained products Findings Uterus 9cm. Small chunk tissue was seen Description of Procedure Patient was prepped and draped sterile fashion placed dorsal lithotomy position excellent IV sedation weighted speculum placed in posterior fornix. Anterior the cervix grasped with single-tooth tenaculum. 2.5cc 1 anesthesia placed at 2, 4 8, 10:00 a.m. cervix. Uterus sounded 9cm was mildly retroverted. Ultrasound guidance was used serial dilatation with fragmented dilators performed and the 9. Suction curette was passed was very minimal amount tissue present that which was seen was evacuated the instruments withdrawn and blood loss was estimated 25cc. All sponge, needle, instrument counts were correct. There were no immediate complications Estimated Blood Loss 25 Drains No Packing No Pathology Yes Complications No immediate complications Condition Stable Disposition PACU
[2025-06-16 11:55] VITALS: BP 113/70; PULSE 77; RESP 18; O2SAT 93
[2025-06-16 12:25] VITALS: BP 112/69; PULSE 70
[2025-06-16] MEDS: oxyCODONE HCL (*CRX) 5 MG TAB IR PO (12:49)
[2025-06-16 13:00] VITALS: BP 111/75; PULSE 66; RESP 16
== END 2025-06-16 13:15 | disposition home or self-care (01) ==
PROVIDERS: PCP Physician Assistant; Visit Provider Obstetrics & Gynecology
PROC: (CPT 59820; principal; 2025-06-16 12:00)
DX: O02.1 Missed abortion (principal); F17.210 Nicotine dependence, cigarettes, uncomplicated; F12.90 Cannabis use, unspecified, uncomplicated
CPT/HCPCS: 59820; 88305; A9270; J2003; J2250; J2704; J3010; J7120